=== PATIENT | male | born 1995 | race Caucasian/White ===

== ENCOUNTER 2021-09-23 11:05 | Emergency (ER) | payer OTHER ==
[~2021-09-23] VITALS: Ht 180.3 cm; Wt 99.3 kg
--- NOTE | 2021-09-23 11:21 | NUR ---
DR ZHENG AT BEDSIDE FOR EVALUATION.
--- NOTE | 2021-09-23 11:57 | NUR ---
Aditya burnette in ED - 09/23/21 at 1158 by [facility] Patient discharged to home in stable condition. Written and verbal after care instructions given. Patient verbalizes understanding of instructions. Stressed follow up or return to ER for worsening s/s.
[2021-09-23] MEDS ORDERED: IBUP-1955 PO ×2 (12:04→12:11)
[2021-09-23] MEDS ORDERED: CYCL5TAB PO ×2 (12:04→12:11)
--- NOTE | 2021-09-23 12:17 | NUR ---
Patient discharged to home in stable condition. Written and verbal after care instructions given. Patient verbalizes understanding of instructions. Stressed follow up or return to ER for worsening s/s.
== END 2021-09-23 12:17 | disposition home or self-care (01) ==
LOC: ER 11:05
DX: S30.0XXA Contusion of lower back and pelvis, initial encounter (principal); M25.552 Pain in left hip; V86.99XA Unspecified occupant of other special all-terrain or other off-road motor vehicle injured in nontraffic accident, initial encounter; Y93.89 Activity, other specified; Y92.89 Other specified places as the place of occurrence of the external cause; R03.0 Elevated blood-pressure reading, without diagnosis of hypertension; F17.200 Nicotine dependence, unspecified, uncomplicated
CPT/HCPCS: A4663